=== PATIENT | male | born 1980 | race Caucasian/White ===

== ENCOUNTER 2021-08-20 00:21 | Emergency (ER) | payer MEDICARE, MEDICAID, SELFPAY ==
[2021-08-20 00:59] VITALS: BP 132/66; PULSE 65; RESP 20; TEMP 36.8; O2SAT 100; BMI 23.0
== END 2021-08-20 02:06 | disposition left against medical advice (07) ==
PROVIDERS: Emergency Provider Emergency Medicine Emergency Medical Services
DX: S05.90XA Unspecified injury of unspecified eye and orbit, initial encounter (principal); X58.XXXA Exposure to other specified factors, initial encounter; Y93.9 Activity, unspecified; Y92.9 Unspecified place or not applicable; Y99.9 Unspecified external cause status
CPT/HCPCS: 99281

== ENCOUNTER 2023-04-18 11:04 | Emergency (ER) | payer OTHER, SELFPAY ==
--- NOTE | ~2023-04-18 | XR_ITS ---
EXAMINATION: XR LUMBOSACRAL SPINE CLINICAL INFORMATION: Pain COMPARISON: None available. TECHNIQUE: Three views of the lumbosacral spine. FINDINGS: There 5 nonrib-bearing lumbar-type vertebral bodies. The height of vertebral bodies is well-maintained. There is straightening of the usual lumbar lordosis which can be seen with muscle spasm. There is mild disc space narrowing at L1-L2. The L4-L5 and L5-S1 disc space are narrowed consistent with degenerative disc disease. There is mild degenerative facet joint disease L5-S1. XR/XR lumbar spine 2-3V IMPRESSION: 1. Muscle spasm. 2. Degenerative disc disease at L1-L2, L4-L5 and L5-S1. 3. Mild degenerative facet joint disease L5-S1.
[2023-04-18 11:10] VITALS: BP 150/109; PULSE 70; RESP 18; TEMP 36.6; O2SAT 98; BMI 23.9
--- NOTE | 2023-04-18 11:13 | ED_ITS ---
HPI - General Adult General Chief complaint: Back Pain/Injury Stated complaint: Back injury Time Seen by Provider: 04/18/23 11:30 Source: patient, RN notes reviewed and old records reviewed Mode of arrival: ambulatory History of Present Illness HPI narrative: 42-year-old male with no significant past medical history presenting to the ED complaining of low back pain radiating down left lower extremity s/p granddaughter jumping on back while lying on stomach last night. Denies taking anything for pain. Reports shooting pain down LLE. Denies fever/chills, numbness, tingling, weakness, incontinence/retention, fever Related Data Allergies Allergy/AdvReac Type Severity Reaction Status Date / Time gabapentin [GABAPENTIN] Allergy Unknown BLIND Unverified 08/20/21 01:03 quetiapine [From SEROQUEL] Allergy Unknown HEART RACES Unverified 08/20/21 01:03 Review of Systems Review of Systems: Constitutional: No Fever, No Chills ENT/Mouth: No Ear Pain, No Nasal Congestion, No Swallowing Difficulty Cardiovascular: No Chest Pain, No SOB Respiratory: No Cough Gastrointestinal: No Nausea, No Vomiting,No Abdominal pain Genitourinary: No Dysuria, No Urinary Frequency, No Hematuria, No Urinary Incontinence/retention, No Flank Pain Musculoskeletal: +back pain, No Myalgias, No Joint Swelling Skin: No Skin Lesions, No rash Neuro: No Weakness, No Numbness, No Paresthesias Yes all other systems are reviewed and are negative Constitutional: Constitutional: Reports as per HPI Neurologic: Denies Sensory deficit (Neuro) [facility] Past Medical History Attestation statement: The following information was validated with the patient. Source: old records reviewed Social History Social History Advance Directives: No Physical Exam ED Vital Signs: Vital Signs - 24 hr 04/18/23 11:10 Temperature 97.8 F Pulse Rate 70 Respiratory Rate 18 Blood Pressure 150/109 H Pulse Oximetry 98 Oxygen Delivery Method Room Air BMI result Body Mass Index 23.9 Const General: cooperative, healthy appearing and no acute distress Orientation/consciousness: patient oriented x3 Limitations: no limitations HENMT Head: Yes normal to inspection and Yes atraumatic Ears: hearing grossly normal bilaterally General nose exam: Normal external nose present Face and sinus: Yes normal facial exam Eyes General: appearance normal, both eyes and all related structures EOM: EOMs intact bilaterally Neck Neck: Yes normal visual inspection and Yes no meningeal signs Resp Effort & Inspection: normal respiratory effort and no respiratory distress Auscultation: clear to auscultation bilaterally Cardio Rate: regular rate Heart sounds: S1 normal heart sound present and S2 normal heart sound present GI Inspection: Yes normal to inspection Palpation (GI): Soft to palpation, nontender, no guarding and not rigid General: Yes no CVA tenderness Back/Spine/Pelvis Other: No midline cervical/thoracic/lumbar spinous tenderness/step-off or deformity. + left-sided lumbar paraspinal reproducible tenderness palpation in left upper buttock MSK tenderness to palpation Back: no CVA tenderness Skin Rashes: no rashes Wounds: no wounds Neuro Other: Strength intact throughout. No saddle anesthesia. Sensation intact to light touch. Neurovascular intact distally. + straight leg raise to LLE General: patient oriented x3, tone normal, moves all extremities, no meningeal signs and no focal motor deficits Cranial nerves: Yes CN's II-XII intact bilaterally Gait exam (Neuro): Normal gait present Motor exam (neuro): 5/5 motor strength present throughout Sensory Exam: No Sensory deficit (Neuro) Extrem General: Yes normal to inspection Course Course Course Narrative: RME- 42-year-old male presents for evaluation of left lower back pain. He reports that he was lying on his stomach on the back yesterday when his granddaughter jumped on his back. He had mild pain at time reports waking up with severe pain in the left lower back that radiates down his left leg. Denies any numbness, tingling. He states that when he turns to the side the pain shoots down his left leg. Denies any bladder or bowel incontinence. Positive straight leg raise on left. Plan for x-ray. No warning signs cauda equina syndrome XR lumbar spine 2-3V IMPRESSION: 1. Muscle spasm. 2. Degenerative disc disease at L1-L2, L4-L5 and L5-S1. 3. Mild degenerative facet joint disease L5-S1. > on re-eval patient reports sx improvement. Ambulating w/steady gait. Results discussed with patient including worrisome signs and symptoms and strict return precautions, and when to return to the emergency department. They verbalized understanding and feel safe for discharge at this time. Medications Administered Discontinued Medications Generic Name Dose Route Start Last Admin Trade Name Phil PRN Reason Stop Dose Admin Cyclobenzaprine HCl 10 mg 04/18/23 12:39 04/18/23 13:16 Cyclobenzaprine Hcl 10 Mg Tablet PO 04/18/23 12:40 10 mg ONCE ONE Administration Ketorolac Tromethamine 30 mg 04/18/23 12:39 04/18/23 13:16 Ketorolac Tromethamine 30 Mg/Ml Vial IM 04/18/23 12:40 30 mg ONCE ONE Administration Lidocaine 1 patch 04/18/23 12:39 04/18/23 13:15 Lidocaine 4 % Patch Adh..Patch TRANSDERMA 04/18/23 12:40 1 patch ONCE ONE Administration Protocol Medical Decision Making Medical Decision Making MDM Narrative: 42-year-old male with no significant past medical history presenting to the ED complaining of low back pain radiating down left lower extremity s/p granddaughter jumping on back while lying on stomach last night. On exam hypertensive likely from pain, NAD, nontoxic appearing physical exam as noted above. No midline spinous tenderness throat or red flag symptoms. Abdomen soft and nontender. Concern for MSK pain/strain and spasming vs herniated disc vs fracture. Low suspicion for dislocation, cauda equina/cord compression, epidural abscess or intra-abdominal pathology Plan: X-ray ordered in triage, pain management Please refer to course for remaining clinical decision making, interpretation of labs/imaging results, and discussions with consultants and/or family members. Differential Diagnosis Differential Diagnoses: The differential diagnosis associated with the presentation includes As above Radiology Impression Discussion of test interpretation with radiology: I have reviewed the radiologist's reading. External Record Review External record reviewed: Inpatient record, Office record, Outpatient record, Prior outpatient labs, Prior outpatient radiology, Primary care record and Outside ED record Tests considered The following testing was considered but not selected: As above Prescription Management I considered prescription management with: Pain Medication Discharge Plan Discharge Clinical Impression: Lumbar radiculopathy, Degenerative disc disease, lumbar Patient Disposition: Home, Self-Care Instructions: Lumbar Radiculopathy (ED) Additional Instructions: Your x-ray shows evidence of muscle spasming as well as degenerative disc disease/arthritis Your pain is likely musculoskeletal Flexeril is a muscle relaxer, take at night as it makes you drowsy, do not drive, drink alcohol, or operate machinery while taking it Naproxen as an anti-inflammatory / pain medication, take with food Lidoderm patches are numbing patches, apply to painful area In addition take Tylenol at home If symptoms persist or worsen, pain becomes unbearable, you developed urinary retention or incontinence, or weakness return to the ED Referrals: Physician,Unknown J [Primary Care Provider] -
[2023-04-18] MEDS: Lidocaine 4 % Patch ADH..PATCH 1 PATCH TRANSDERMA (13:15)
[2023-04-18] MEDS: Cyclobenzaprine HCl 10 MG TABLET PO (13:16)
[2023-04-18] MEDS: Ketorolac Tromethamine 30 MG/ML VIAL IM (13:16)
== END 2023-04-18 14:32 | disposition home or self-care (01) ==
PROVIDERS: Emergency Provider Emergency Medicine
DX: M51.16 Intervertebral disc disorders with radiculopathy, lumbar region (principal)
CPT/HCPCS: 72100; 96372; 99284; J1885

== ENCOUNTER 2023-12-19 18:07 | Emergency (ER) | payer OTHER, SELFPAY | END 2023-12-19 19:38 | disposition left against medical advice (07) | PROVIDERS: Emergency Provider Emergency Medicine | DX: M79.646 Pain in unspecified finger(s) (principal) ==

== ENCOUNTER 2024-11-05 19:44 | Emergency (ER) | payer OTHER, SELFPAY ==
--- NOTE | ~2024-11-05 | CT_ITS ---
CLINICAL HISTORY: ? pneumobilia on US CT abdomen and pelvis with contrast Comparison: Ultrasound of the abdomen from 11/05/2024 Findings: No consolidation of the imaged lung bases. Calcifications are confirmed in the liver as can be seen with chronic and/or prior granulomatous process. Gallbladder wall thickening and pericholecystic fluid are nonspecific by CT with the imaged CBD measuring [address] (nondilated). No pneumobilia or portal venous gas at this time. Mild periportal edema is present. Nonspecific 1.5 cm nodule of the left adrenal gland. Right adrenal gland is partly obscured. 3 mm nonobstructing nephrolithiasis of the left kidney. No hydronephrosis. Mild scarring of the kidneys as can be seen with chronic and/or prior infection. Imaged spleen is nonenlarged partly obscured in the study with motion and metal artifacts. Fluid in the small bowel loops is nonspecific and can be seen with enteritis with borderline dilatation of small-bowel loops in the left lower quadrant. No definite small bowel obstruction at this time. Imaged appendix is within normal limits (imaged 53 of series 3). Severe stool burden is present, including the cecum. Calcifications noted in the prostate gland, which measures 5 cm transverse. Moderate wall thickening of the urinary bladder is nonspecific. Differential considerations include cystitis. Degenerative changes include facet arthropathy, greater than expected for age. Vacuum disc phenomenon are multifocal including imaged thoracic spine, thoracolumbar junction, and lumbosacral junction. Ligament calcification of the disc bulge at L5-S1. Mild vertebral height losses appear old/chronic and accentuated by Schmorl's nodes. IMPRESSION: 1. No pneumobilia or portal venous gas at this time. 2. Mild gallbladder wall thickening with periportal edema are nonspecific by CT. 3. Fluid and multiple small-bowel is nonspecific and can be seen with enteritis. No small bowel obstruction at this time. 4. Severe stool burden. 5. Wall thickening of the urinary bladder. This document has been electronically signed by: Jean Lux MD on 11/05/2024 23:11:18
--- NOTE | ~2024-11-05 | US_ITS ---
CLINICAL HISTORY: RUQ pain, liver CBD, GB US abdomen limited Comparison: None provided Findings: Majority of the pancreas is obscured by overlying bowel gas. Imaged IVC is unremarkable. Imaged aorta measures 1.7 cm diameter. Portions of the liver are obscured. Imaged liver measures 13.5 cm. Increased echogenicity in addition to expected periportal echoes are nonspecific and concerning for gas. Pneumobilia is favored over portal venous gas by distribution in the partially imaged liver. Small nonshadowing calcifications also considered Mild/borderline gallbladder wall thickening is nonspecific and accentuated by technique. Majority of the imaged gallbladder wall is within normal limits. No pericholecystic fluid of the imaged gallbladder. No definite shadowing stones in the partially imaged gallbladder. A sonographic Winston's sign is not elicited by the technologist. Imaged CBD measures 7 mm diameter. Right kidneys obscured of the time of the imaging. No right upper quadrant ascites or right pleural effusion in the [id number]. Portal veins partly obscured with flow related artifacts at this time. IMPRESSION: 1. Question mild gas in the liver. Although nonspecific by imaging this may reflect pneumobilia. Please consider additional imaging with CT, if clinically indicated. 2. No definite ultrasound findings of acute cholecystitis at this time. 3. Mild/borderline CBD dilatation at this time. This document has been electronically signed by: Jean Lux MD on 11/05/2024 21:47:01
[2024-11-05 19:48] VITALS: BP 144/77; PULSE 66; RESP 20; TEMP 36.4; O2SAT 99; BMI 21.8
--- NOTE | 2024-11-05 19:48 | ED_ITS ---
HPI - General Adult General Chief complaint: Abdominal Pain Stated complaint: abd pain,vomiting Time Seen by Provider: 11/05/24 20:14 Source: patient Limitations: no limitations History of Present Illness ED Provider: Ainsley Diaz PA-C HPI narrative: 43-year-old male presents with the abdominal pain x3 days. Pain over right upper quadrant, is nonradiating described as severe cramping. Associated nausea vomiting diarrhea. The patient's symptoms were triggered after eating [employer]. Denies sick contacts with similar symptoms, recent travel, recent hospitalization or use of antibiotics. No known fevers. Related Data Previous Rx's ?Medication ?Instructions ?Recorded acetaminophen 500 mg tablet 500 mg PO Q6H PRN fever or pain 04/18/23 (Tylenol Extra Strength) #14 tabs cyclobenzaprine 5 mg tablet 5 mg PO Q8H PRN pain (scal e score 04/18/23 7-10) 5 days #14 tabs lidocaine 5 % topical patch 1 patch topical DAILY PRN pain #30 04/18/23 (Lidoderm) ea naproxen 500 mg tablet 500 mg PO BID PRN pain 10 da ys #20 04/18/23 tabs sucralfate 100 mg/mL oral 10 ml PO QID PRN abdominal p ain 11/05/24 suspension (Carafate) #300 mL Allergies Allergy/AdvReac Type Severity Reaction Status Date / Time gabapentin (GABAPENTIN) Allergy Unknown BLIND Verified 11/05/24 19:52 quetiapine (From SEROQUEL) Allergy Unknown HEART RACES Verified 11/05/24 19:52 [facility] Past Medical History Attestation statement: The following information was validated with the patient. Social History Social History Alcohol intake: never Smoked in Last 30 Days: No Use of substances other than those prescribed or required for medical reasons: Yes Substance Use Type: Marijuana Substance Use Frequency: Chronic Longstanding Advance Directives: No Advance Directives Information Provided: No Physical Exam ED Vital Signs: Vital Signs - 24 hr 11/05/24 19:48 11/05/24 20:42 Temperature 97.6 F Pulse Rate 66 64 Respiratory Rate 20 18 Blood Pressure 144/77 H 115/61 Pulse Oximetry 99 97 Oxygen Delivery Method Room Air Room Air BMI result Body Mass Index 21.8 Course Course Course Narrative: This is a rapid medical exam performed by Willow Marcelino NP: Additional HPI, ROS, PE not included below will be deferred to primary provider. Patient is a 43-year-old male presenting with 3 days of upper abdominal pain, nausea and vomiting. Was feeling a little better then felt worse after eating [employer]. No prior abdominal surgeries. Keeps having sensation to have BM but when he sits down, can't go but did have an episode of diarrhea 45 mins ago. Plan:labs Medications Administered Discontinued Medications Generic Name Dose Route Start Last Admin Trade Name Phil PRN Reason Stop Dose Admin Sodium Chloride 1,000 mls @ 999 mls/hr 11/05/24 20:30 11/05/24 23:36 Ns IV 11/05/24 21:30 Infused .Q1H1M CORDELIA Infusion Iohexol 85 ml 11/05/24 22:09 11/05/24 22:09 Iohexol 350 Mg/Ml 100 Ml Infus..Btl IV 11/05/24 22:10 85 ml ONCE ONE Administration Midazolam HCl 2.5 mg 11/05/24 20:20 11/05/24 20:30 Midazolam Hcl 5 Mg/Ml Vial IVPUSH 11/05/24 20:21 2.5 mg ONCE ONE Administration Morphine Sulfate 4 mg 11/05/24 20:20 11/05/24 20:30 Morphine Sulfate 4 Mg/Ml Cartridge IVPUSH 11/05/24 20:21 4 mg ONCE ONE Administration Protocol Medical Decision Making Medical Decision Making MDM Narrative: 43-year-old male presents with the abdominal pain x3 days. Pain over right upper quadrant, is nonradiating described as severe cramping. Associated nausea vomiting diarrhea. The patient's symptoms were triggered after eating [employer]. Denies sick contacts with similar symptoms, recent travel, recent hospitalization or use of antibiotics. No known fevers. No chronic issues History: Per patient I have considered the following differential diagnoses: Cholecystitis, biliary colic, gastritis, viral gastroenteritis, C diff, food poisoning, traveler's diarrhea Plan: Given distribution of discomfort in nature of symptoms, I am most concerned for cholecystitis. Screening labs including LFTs have been ordered. We will add on an ultrasound of the right upper quadrant. Giving morphine, Versed and IV fluid therapy. To note he has no risk factors for C diff or traveler's diarrhea, less likely to be viral gastroenteritis given he has no sick contacts with similar symptoms. This could be food poisoning, however he has focal abdominal pain in the right upper quadrant which would be atypical. I have independently reviewed the following tests: Labs: Leukocytosis 11.6, not anemic, no electrolyte abnormality, T bili 0.3, AST 30, ALT 51, alk phos 69, lipase 23 Ultrasound right upper quadrant:MPRESSION: 1. Question mild gas in the liver. Although nonspecific by imaging this may reflect pneumobilia. Please consider additional imaging with CT, if clinically indicated. 2. No definite ultrasound findings of acute cholecystitis at this time. 3. Mild/borderline CBD dilatation at this time. CT abd: IMPRESSION: 1. No pneumobilia or portal venous gas at this time. 2. Mild gallbladder wall thickening with periportal edema are nonspecific by CT. 3. Fluid and multiple small-bowel is nonspecific and can be seen with enteritis. No small bowel obstruction at this time. 4. Severe stool burden. 5. Wall thickening of the urinary bladder. Lab Data 11/05/24 19:57 11/05/24 19:57 Labs: Lab Results 11/05/24 Range/Units 19:57 WBC 11.6 H (4.8-10.8) X10*3/uL RBC 4.70 (4.60-5.80) X10*6/uL Hgb 14.4 (14.0-18.0) g/dl Hct 40.6 L (42.0-52.0) % MCV 86.4 (80.0-98.0) fL MCH 30.6 (27.0-33.0) pg MCHC 35.5 (31.0-36.0) g/dl RDW 13.5 (11.0-16.0) % Plt Count 257 (160-400) X10*3/uL MPV 8.9 L (9.4-12.4) fL Immature Gran % (Auto) 0.2 (0.0-0.4) % Neut % (Auto) 52.1 (45-73) % Lymph % (Auto) 36.0 (20-40) % Coleman % (Auto) 8.8 (2-11) % Eos % (Auto) 2.0 (0-4) % Baso % (Auto) 0.9 (0-2) % Lymph # (Auto) 4.2 (1.2-4.9) X10*3/uL Coleman # (Auto) 1.0 (0.1-1.2) X10*3/uL Eos # (Auto) 0.2 (0.0-0.4) X10*3/uL Baso # (Auto) 0.1 (0.0-0.2) X10*3/uL Abs Immat Gran (auto) 0.02 (0.00-0.03) X10*3/uL Absolute Neuts (auto) 6.1 (2.0-8.3) x10*3/uL Absolute Nucleated RBC 0.000 (0.0-0.012) X10*3/uL Nucleated RBC % (auto) 0.0 (0.0-0.2) /100WBC Sodium 141 (135-145) mmol/L Potassium 4.1 (3.3-5.1) mmol/L Chloride 107 (96-108) mmol/L Carbon Dioxide 26 (22-29) mmol/L Anion Gap 12 (12-20) BUN 9 (9-16) mg/dL Creatinine 1.06 (0.5-1.4) mg/dL Estim Creat Clear Calc 77.8 Estimated GFR > 60 Random Glucose 104 (60-115) mg/dL Calcium 9.2 (8.4-10.2) mg/dL Magnesium 2.4 (1.6-2.6) mg/dL Total Bilirubin 0.3 (0.0-1.0) mg/dL AST 30 (5-37) U/L ALT 51 H (0-40) U/L Alkaline Phosphatase 69 (39-117) U/L Total Protein 7.5 (6.5-8.0) g/dL Albumin 4.7 (3.5-5.0) g/dL Triglycerides 434 H (<150) mg/dL Lipase 23 (8-78) U/L Discharge Plan Discharge Clinical Impression: Constipation, Enteritis Patient Disposition: Home, Self-Care Instructions: Constipation (ED), Enteritis (ED) Additional Instructions: The ultrasound was normal, the CT scan revealed that you have enteritis, this is inflammation and part of your small bowel. You were also found to be considerably constipated. See home care instructions. Use the Carafate as needed for upper abdominal discomfort. You need to implement and aggressive bowel regimen to clear your severe stool burden. Use [id number] Colace, this is a stool softener, twice a day. Use [id number] MiraLax, 4 to 5 times a day, or up to every hour, until you begin having multiple large volume bowel movements. Follow up with your primary care provider as needed. Prescriptions: New sucralfate [Carafate] 100 mg/mL suspension 10 ml PO QID PRN (Reason: abdominal pain) Qty: 300 0RF Rx Instructions: swish in mouth and swallow; use after food/drink No Action acetaminophen [Tylenol Extra Strength] 500 mg tablet 500 mg PO Q6H PRN (Reason: fever or pain) Qty: 14 0RF lidocaine [Lidoderm] 5 % adhesive patch,medicated 1 patch topical DAILY MDD remove after 12 hours PRN (Reason: pain) Qty: 30 0RF Rx Instructions: leave on most painful area for up to 12 hrs naproxen 500 mg tablet 500 mg PO BID PRN (Reason: pain) 10 Days Qty: 20 0RF cyclobenzaprine 5 mg tablet 5 mg PO Q8H PRN (Reason: pain (scale score 7-10)) 5 Days Qty: 14 0RF Print Language: Lebanese
[2024-11-05 20:02] LABS: MANUAL DIFF FLAG NO
[2024-11-05 20:03] LABS: Hematocrit 40.6 % (42.0-52.0); Hemoglobin 14.4 g/dl (14.0-18.0); Imm Gran Abs Auto 0.02 X10*3/uL (0.00-0.03); Imm Gran Pct Auto 0.2 % (0.0-0.4); Lymphocytes Absolute Auto 4.2 X10*3/uL (1.2-4.9); Mean Corpuscular HGB Conc 35.5 g/dl (31.0-36.0); Mean Corpuscular Hemoglobin 30.6 pg (27.0-33.0); Mean Corpuscular Volume 86.4 fL (80.0-98.0); NRBC Abs Auto 0.000 X10*3/uL (0.0-0.012); NRBC Pct Auto 0.0 /100WBC (0.0-0.2); Platelet Count 257 X10*3/uL (160-400); Red Blood Count 4.70 X10*6/uL (4.60-5.80); White Blood Count 11.6 X10*3/uL (4.8-10.8)
[2024-11-05 20:21] LABS: Alanine Aminotransferase 51 U/L (0-40); Albumin Level 4.7 g/dL (3.5-5.0); Alkaline Phosphatase 69 U/L (39-117); Anion Gap 12 (12-20); Aspartate Amino Transferase 30 U/L (5-37); Blood Urea Nitrogen 9 mg/dL (9-16); Calcium 9.2 mg/dL (8.4-10.2); Carbon Dioxide 26 mmol/L (22-29); Chloride 107 mmol/L (96-108); Creatinine Clr Calc Pharmacy 77.8; Estimated Glomerular Filt Rate > 60; Lipase 23 U/L (8-78); Potassium 4.1 mmol/L (3.3-5.1); Sodium 141 mmol/L (135-145); Total Protein 7.5 g/dL (6.5-8.0); Triglycerides 434 mg/dL (<150)
--- NOTE | 2024-11-05 20:39 | PC.NURSE ---
pt presents with 3 days of abdominal pain and diarrhea. Pt reports it was startng to get better but after eating small fries and [employer] from [employer] the pain came back and is excruciatng. Pt is crying and shaking in discomfort 10/10. Elizabeth Warner assessed pt and ordered medication. #20 IV placed in L-forearm. Pt tolerated well, fluids started and pt medicated as prescribed. Pt reports immediate relief from morphine. radiological technician at bedside. Call byrne within reach, plan of care ongoing.
[2024-11-05 20:42] VITALS: BP 115/61; PULSE 64; RESP 18; O2SAT 97
[2024-11-05 21:27] LABS: Magnesium 2.4 mg/dL (1.6-2.6)
[2024-11-05] MEDS: iohexoL 350 MG/ML 100 ML INFUS..BTL 85 ML IV (22:09)
[2024-11-05 23:54] LABS: Appearance Urine Clear; Glucose Urine UA Negative (Negative); PH 7.5 (5.0-9.0); Specific Gravity - Urine >= 1.030 (1.005-1.025)
[2024-11-06 00:15] VITALS: BP 115/61; PULSE 64; RESP 18; TEMP -17.7; TEMP 0; O2SAT 97
== END 2024-11-06 00:15 | disposition home or self-care (01) ==
PROVIDERS: Physician Assistant Medical; Registered Nurse Emergency; Emergency Provider Emergency Medicine
DX: K59.00 Constipation, unspecified (principal); K52.9 Noninfective gastroenteritis and colitis, unspecified; R10.2 Pelvic and perineal pain; R11.2 Nausea with vomiting, unspecified; R10.11 Right upper quadrant pain; Z79.899 Other long term (current) drug therapy
CPT/HCPCS: 36415; 74177; 76705; 80053; 81003; 83690; 83735; 84478; 85025; 96361; 96374; 96375; 99284; J2250; J2270; Q9967

== ENCOUNTER → 2024-11-05 20:19 | Outpatient (BNV) | payer OTHER, SELFPAY | PROVIDERS: Emergency Provider Emergency Medicine; Visit Provider Radiology Neuroradiology | DX: K52.9 Noninfective gastroenteritis and colitis, unspecified (principal) | CPT/HCPCS: 74177 ==